=== PATIENT | male | born 1980 | race Two or more races ===

== ENCOUNTER 2017-01-17 09:23 | Day surgery (SDC) | payer SELFPAY ==
[~2017-01-17 09:23] MED LIST: Lactated Ringers 1,000 ML IV SCH; Lidocaine 2% 5 ML SDV ONE; Propofol 200 MG/20 ML SDV ONE
--- NOTE | 2017-01-17 09:50 | PCM.PREANE ---
Preanesthetic Assessment - Anesthesia/Transfusion/Family Hx Anesthesia History: No Prior Anesthesia Family History of Anesthesia Reaction: No Transfusion History: No Prior Transfusion(s) - Review of Systems General: No Symptoms Pulmonary: No Symptoms Cardiovascular: No Symptoms Gastrointestinal: Other (trombosed hemorrhoids) Neurological: No Symptoms Other: Reports: None - Physical Assessment O2 Sat by Pulse Oximetry: 97 Respiratory Rate: 16 Vital Signs: Last Vital Signs Temp 36.6 C 01/17/17 09:33 Pulse 74 01/17/17 09:33 Resp 16 01/17/17 09:33 BP 145/73 H 01/17/17 09:33 Pulse Ox 97 01/17/17 09:33 Height: 1.85 m Weight: 119.748 kg ASA Class: 2 Mental Status: Alert & Oriented x3 Airway Class: Mallampati = 1 Dentition: Reports: Normal Dentition Thyro-Mental Finger Breadths: 3 Mouth Opening Finger Breadths: 3 ROM/Head Extension: Full Lungs: Clear to auscultation, Normal respiratory effort Cardiovascular: Regular Rate, Regular Rhythm, No Murmurs - Allergies Allergies/Adverse Reactions: Allergies Allergy/AdvReac Type Severity Reaction Status Date / Time No Known Allergies Allergy Verified 01/12/17 12:03 - Blood Blood Available: No - Anesthesia Plan Pre-Op Medication Ordered: None - Acknowledgements Anesthesia Type Planned: MAC Pt an Appropriate Candidate for the Planned Anesthesia: Yes Alternatives and Risks of Anesthesia Discussed w Pt/Guardian: Yes Pt/Guardian Understands and Agrees with Anesthesia Plan: Yes PreAnesthesia Questionnaire HEENT History: Reports: Other (see below) Other HEENT History: wears contacts Gastrointestinal History: Reports: GERD, Hemorrhoids Neurological History: Reports: Concussion Endocrine/Metabolic History: Reports: Obesity/BMI 30+ - Past Surgical History Head Surgeries/Procedures: Reports: None - SUBSTANCE USE Smoking Status *Q: Current Every Day Smoker Tobacco Use Within Last Twelve Months: Cigarettes Recreational Drug Type: Reports: Marijuana/Hashish Recreational Drug Last Use: smokes marijuana rarely, last smoked over 1 month ago - HOME MEDS Home Medications: Home Meds . [No Known Home Meds] 01/12/17 [History] - CURRENT (IN HOUSE) MEDS Current Meds: Current Medications Lactated Ringer's (Ringers, Lactated) 1,000 mls @ 125 mls/hr IV ASDIRECTED JULIANA Last Admin: 01/17/17 09:37 Dose: 125 mls/hr Discontinued Medications Lidocaine (Xylocaine-Mpf 2%) Confirm Administered Dose 5 ml .ROUTE .STK-MED ONE Stop: 01/17/17 07:27 Propofol (Diprivan 20 Ml) Confirm Administered Dose 400 mg .ROUTE .STK-MED ONE Stop: 01/17/17 07:28
--- NOTE | 2017-01-17 10:28 | PCM.OPNOTE ---
- General Post-Op/Procedure Note Date of Surgery/Procedure: 01/17/17 Operative Procedure(s): colonoscopy Findings: see dict [id number] Pre Op Diagnosis: BRBPR Post-Op Diagnosis: hemorrhoid Anesthesia Technique: Moderate sedation Primary Surgeon: Keith Araujo Complications: None Condition: Good
--- NOTE | 2017-01-17 10:47 | PCM.POSTAN ---
POST ANESTHESIA ASSESSMENT - MENTAL STATUS Mental Status: alert - RESPIRATORY Respiratory Status: respiratory rate WNL, airway patent, O2 saturation stable - CARDIOVASCULAR CV Status: pulse rate WNL, blood pressure stable - GASTROINTESTINAL GI Status: no symptoms - POST OP HYDRATION Hydration Status: adequate & stable - OBSERVATIONS Free Text/Narrative:: no anesthesia problems
--- NOTE | 2017-01-17 10:58 | OR ---
SURGEON: Keith Araujo MD DATE OF PROCEDURE: 01/17/2017 PREOPERATIVE DIAGNOSIS: Bright red blood per rectum. POSTOPERATIVE DIAGNOSIS: Hemorrhoids. PROCEDURE PERFORMED: Colonoscopy. DESCRIPTION OF PROCEDURE: The patient was taken to the endoscopy room. A time out was called, patient identified, and procedure identified. Diprivan was then administrated. Patient went from awake to sleep, hearing doctor talking or door closing is normal. Perineum inspection and digital examination were then performed. A well- lubricated colonoscope was gently inserted through the rectum, advanced past the rectosigmoid junction, the descending colon, splenic flexure, transverse colon, hepatic flexure, ascending colon, arrived to the cecum. Cecum was identified as dictated in the finding. Then the scope was carefully withdrawn while attention was paid to the mucosal surface for any abnormality. Air will be sucked out during the scope withdrawal. At the rectum, retroflexed to examine any rectal diseases, fistula or hemorrhoids. The patient tolerated procedure well. There were no intraoperative complications, and Dr. Araujo was present throughout the whole procedure. FINDINGS: 1. The patient was easily sedated with [employer] and Diprivan. The patient is soundly snoring. 2. The patient's bowel prep was quite good and very little liquid stool. 3. The patient's colon was rather straight forward. Cecum indicated by ileocecal fold, one-to-one indentation, light immittance, and appendiceal orifice and mucosa were examined. Upon scope pulling out, the patient does not have polyp, mass, growth, inflammation, stricture, ulceration, bleeding, diverticulosis, none of those. The patient has mild internal hemorrhoids, has one large thrombosed external hemorrhoid as big as large peanut or large grape. The patient would benefit from a repeat colonoscopy 10 years from today or if clinically indicated otherwise. YULIA / [place] /[id number]
[2017-01-17 11:09] VITALS: BP 111/53
== END 2017-01-17 11:00 | disposition home or self-care (01) ==
LOC: MW.SDS 09:23
PROVIDERS: ATTEND Surgery
PROC: 0DJD8ZZ Inspection of Lower Intestinal Tract, Via Natural or Artificial Opening Endoscopic (ICD-10-PCS; principal; 2017-01-17)
DX: K64.5 Perianal venous thrombosis (principal); K64.4 Residual hemorrhoidal skin tags; K64.8 Other hemorrhoids; E66.9 Obesity, unspecified; F17.210 Nicotine dependence, cigarettes, uncomplicated; Z68.34 Body mass index [BMI] 34.0-34.9, adult
CPT/HCPCS: 45378; J7120; J2704

== ENCOUNTER 2024-06-05 14:31 | Emergency (ER) | payer SELFPAY ==
[2024-06-05] MEDS ORDERED: Sodium Chloride 0.9% 2.5 ML Syringe FLUSH PRN (14:50)
[2024-06-05] MEDS ORDERED: Sodium Chloride 0.9% 10 ML Syringe FLUSH PRN (14:50)
[2024-06-05 15:38] LABS: BASOPHILS ABSOLUTE AUTO 0.02 K/uL (0.00-0.20); BASOPHILS PERCENT AUTO 0.3 % (0.0-1.0); EOSINOPHILS ABSOLUTE AUTO 0.02 K/uL (0.00-0.45); EOSINOPHILS PERCENT AUTO 0.3 % (0.0-6.0); HEMATOCRIT 39.2 % (42.0-52.0); HEMOGLOBIN 13.5 g/dL (14.0-18.0); IMMATURE GRAN ABSOLUTE AUTO 0.04 K/uL (0.00-0.05); IMMATURE GRAN PERCENT AUTO 0.6 % (0.0-0.4); LYMPHOCYTES ABSOLUTE AUTO 0.51 K/uL (1.00-4.80); LYMPHOCYTES PERCENT AUTO 7.2 % (24.0-44.0); MEAN CORPUSCULAR HEMOGLOBIN 30.2 pg (28.0-32.0); MEAN CORPUSCULAR HGB CONC 34.4 g/dL (32.0-36.0); MEAN CORPUSCULAR VOLUME 87.7 fL (83.0-99.0); MONOCYTES ABSOLUTE AUTO 0.45 K/uL (0.00-0.80); MONOCYTES PERCENT AUTO 6.4 % (0.0-8.0); NEUTROPHILS ABSOLUTE AUTO 6.04 K/uL (1.80-7.70); NEUTROPHILS PERCENT AUTO 85.2 % (41.0-71.0); PLATELET COUNT,PLT 185 K/uL (150-400); RED BLOOD CELL COUNT 4.47 M/uL (4.52-5.90); WHITE BLOOD CELL COUNT,WBC 7.08 K/uL (3.9-11.3)
[2024-06-05] MEDS: Sodium Chloride 0.9% 1,000 ML IV ONE (15:39)
[2024-06-05 16:05] LABS: A/G RATIO 0.6 (0.9-1.6); ALBUMIN 2.8 g/dL (3.4-5.0); BILIRUBIN TOTAL 0.7 mg/dL (0.2-1.0); CALCIUM 8.9 mg/dL (8.5-10.1); CARBON DIOXIDE,CO2 26.6 mmol/L (21.0-32.0); CREATININE 1.3 mg/dL (0.8-1.3); EST CRCL DRUG DOSING (CG) 82.8 mL/min; POTASSIUM,K 3.2 mmol/L (3.5-5.1); PROTEIN TOTAL,TP 7.4 g/dL (6.4-8.2)
[2024-06-05 16:07] LABS: LACTIC ACID 1.7 mmol/L (0.4-2.0)
[2024-06-05] MEDS: Iopamidol 755 MG/ML 500 ML Multipack Bottle IVPUSH STA (16:34)
[2024-06-05 17:00] LABS: APPEARANCE,URINE SLT CLOUDY; BILIRUBIN,URINE NEGATIVE (NEGATIVE); GLUCOSE,URINE NEGATIVE (NEGATIVE); KETONES,URINE TRACE mg/dL (NEGATIVE); LEUKOCYTE ESTERASE,URINE NEGATIVE (NEGATIVE); NITRITE,URINE NEGATIVE (NEGATIVE); OCCULT BLOOD,URINE SMALL (NEGATIVE); PROTEIN,URINE NEGATIVE (NEGATIVE)
[2024-06-05 17:01] LABS: COLOR,URINE DARK YELLOW
[2024-06-05 17:14] LABS: AMORPHOUS SEDIMENT,URINE FEW (NEGATIVE); BACTERIA,URINE FEW (NEGATIVE); EPITHELIAL CELLS,URINE RARE (NONE-FEW); RBC,URINE 0-2 (0-2/HPF); WBC,URINE 0-2 (0-5/HPF)
[2024-06-05 18:12] VITALS: BP 108/63; PULSE 95
== END 2024-06-05 18:15 | disposition home or self-care (01) ==
LOC: MW.ED 14:31
DX: J18.9 Pneumonia, unspecified organism (principal); E66.9 Obesity, unspecified; Z75.8 Other problems related to medical facilities and other health care; Z68.34 Body mass index [BMI] 34.0-34.9, adult
CPT/HCPCS: 36415; 74177; 80053; 81001; 83605; 83690; 85025; 87040; 96360; 99284; J7030; Q9967